=== PATIENT | male | born 1950 | race Caucasian/White ===

== ENCOUNTER 2018-07-19 20:24 | Inpatient (IN) ==
--- NOTE | 2018-07-19 21:08 | Diag Imaging Result Doc PS360 ---
EXAM: CHEST-PORTABLE HISTORY: chf? TECHNIQUE: Portable chest single view COMPARISON: 01/25/2018 FINDINGS: The lungs are well expanded. The heart is not enlarged. The vessels are not distended. There are no infiltrates. No effusion identified. There are surgical clips in the right axilla. IMPRESSION: No congestive failure. Electronically signed by Momo Gutierrez 07/19/2018 9:06 PM
[2018-07-19 21:40] LABS: URINE SOURCE CLEAN CATCH
[2018-07-19 21:48] LABS: BILIRUBIN URINE NEGATIVE (NEGATIVE); BLOOD URINE NEGATIVE (NEGATIVE); COLOR STRAW; GLUCOSE URINE 150 mg/dL (NEGATIVE); KETONE URINE NEGATIVE (NEGATIVE); LEUKOCYTES URINE NEGATIVE (NEGATIVE); NITRITE URINE NEGATIVE (NEGATIVE); PH URINE 5.5; PROTEIN URINE NEGATIVE (NEGATIVE); SP GRAVITY URINE 1.013; TURBIDITY URINE CLEAR (CLEAR); UROBILINOGEN URINE NORMAL (NORMAL)
[2018-07-19 21:50] LABS: UR EPITHELIAL CELLS <10 /HPF (<10); URINE BACTERIA NEGATIVE /HPF; URINE RBC <10 /HPF (<10); URINE WBC <10 /HPF (<10)
[2018-07-19] MEDS ORDERED: XYLOCAINE 1% ONE (22:19)
[2018-07-19] MEDS: NS 1,000 ML IV SCH (22:45)
[2018-07-19 23:07] LABS: INR 1.06; PROTIME 14.6 Seconds (11.0-16.0)
[2018-07-19 23:08] LABS: BASO# 0.01 X1000 (0.0-0.2); BASO% 0.1 % (0.0-0.8); EOS# 0.02 X1000 (0.0-0.7); EOS% 0.1 % (0.0-10.0); HEMATOCRIT 27.4 % (42.0-52.0); HEMOGLOBIN 8.7 g/dL (14.0-18.0); IMM GRAN# 0.04 X1000 (0.0-0.04); IMM GRAN% 0.3 % (0.0-0.5); LYMPH# 1.38 X1000 (1.2-3.4); LYMPH% 9.1 % (20.5-51.1); MCH 29.5 PG (27-31); MCHC 31.8 g/dL (33-37); MCV 92.9 FL (81-99); MONO# 1.02 X1000 (0.11-0.59); MONO% 6.7 % (1.7-9.3); MPV 10.2 FL (7.4-10.4); NEUT# 12.75 X1000 (1.4-6.5); NEUT% 83.7 % (42.2-75.2); PLT 241 X1000 (130-400); RBC 2.95 XMIL (4.7-6.1); RDW 13.3 % (11.5-14.5); WBC 15.22 X1000 (4.8-10.8)
[2018-07-19] MEDS ORDERED: SODIUM CHLORIDE 0.9% INJ ONE (23:12)
[2018-07-19] MEDS ORDERED: PROTONIX IV ONE (23:12)
[2018-07-19 23:17] LABS: PTT < 20.0 Seconds (22.3-41.8)
--- NOTE | 2018-07-19 23:33 | PROVIDER DOCUMENTATION ---
This chart was entered by Juli Gutierrez Scribe, acting as scribe for Kristofer Mtz MD. HPI-General Adult - General Chief Complaint: Shortness of Breath Stated Complaint: sob Time Seen by Provider: 07/19/18 20:32 Source: patient Allergies/Adverse Reactions: Patient Allergies Allergy/AdvReac Type Severity Reaction Status Date / Time No Known Allergies Allergy Verified 01/25/18 19:24 Home Medications: Home Medication List Medication Instructions Recorded Confirmed Last Taken Type ATORVAstatin [Lipitor] 40 mg PO DAILY 01/01/13 10/04/17 10/01/17 20:00 History Clopidogrel [Plavix] 75 mg PO DAILY 01/01/13 10/04/17 10/01/17 07:00 History Furosemide [Lasix] 40 mg PO DAILY 01/01/13 10/04/17 10/01/17 07:00 History Metformin HCl [Metformin HCl ER] 2,000 mg PO DAILY 01/01/13 10/04/17 10/01/17 07 :00 History Potassium Chloride [Klor-Con M20] 20 meq PO DAILY 01/01/13 10/04/17 10/01/17 07: 00 History Venlafaxine E.r. [Effexor Xr] 150 mg PO DAILY 01/01/13 10/04/17 10/01/17 07:00 History Hydrocodone/APAP 7.5 mg/325 mg 1 each PO Q6H PRN PRN #14 tablet 03/02/1510/01/17 07:00 Rx [[place]-7.5] Losartan Potassium 50 mg PO DAILY 03/02/15 10/04/17 10/01/17 07:00 History Omeprazole 40 mg PO DAILY 03/02/15 10/04/17 10/01/17 07:00 History Hydrocodone/APAP 5 mg/325 mg 1 each PO Q6H PRN PRN #10 tablet 10/04/17 Unknown Rx [[place]-5] Cephalexin [Keflex] 500 mg PO Q6HR #28 cap 01/25/18 Unknown Rx - History of Present Illness -Gen Adult Nature of Presenting Problems: Pt presents to ed via EMS. PT Sts that he has no energy and is dizzy, SOB and keeps falling. Pt fell tonight and has an abrasion on L elbow. Pt has hx of IDDM , [place] and has stents. Location of Pain/Injury: reports: upper extremity (abrasion L elbow), other (no other injury) Pain Radiation: reports: no radiation Quality of Pain: reports: none Onset/Duration: reports: just prior to arrival Timing: reports: still present Context/Activities at Onset: reports: light activity Modifying Factors: improves with: nothing Associated Symptoms: reports: dizziness, shortness of breath, weakness Similar Symptoms Previously?: No Recently seen or treated by another doctor?: No Review of Systems - Adult - REVIEW OF SYSTEMS - ADULT Constitutional: reports: no symptoms reported. denies: chills, fever Eyes: reports: no symptoms reported Ears, Nose, Mouth & Throat: reports: no symptoms reported Cardiovascular: reports: no symptoms reported. denies: chest pain Respiratory: reports: shortness of breath. denies: wheezing Gastrointestinal: reports: no symptoms reported. denies: abdominal pain, diarrhea, nausea, vomiting Genitourinary: reports: no symptoms reported Musculoskeletal: reports: no symptoms reported Integumentary: reports: no symptoms reported Neurological: reports: no symptoms reported Psychiatric: reports: no symptoms reported Endocrine: reports: no symptoms reported Hematologic/Lymphatic: reports: no symptoms reported Allergic/Immunologic: reports: no symptoms reported All Other Systems: Reviewed and Negative Past History - Adult - PAST MEDICAL HISTORY-ADULT Review of Records: reports: Old Records Reviewed, Nursing Assessment Review, Medications Reviewed, Social history reviewed & non-contributory. Major Childhood Illnesses: reports: denies history Cardiovascular: reports: CAD, HTN, hyperlipidemia Respiratory: reports: denies history Gastrointestinal: reports: denies history Obstetrical/Gynecological: reports: denies history Genitourinary: reports: denies history Musculoskeletal: reports: denies history Neurological: reports: denies history Endocrine/Immune: reports: other (lymphedema) Other Conditions: reports: other cancer (multiple melanoma) - PRIOR SURGERIES/PROCEDURES Surgical/Procedure History: reports: cardiac stent, other (lymph nodes removed in right arm) - IMMUNIZATION STATUS Childhood Immunizations: See Nurse Assessment Flu Vaccine: See Nurse Assessment - FAMILY HISTORY Family History: reviewed, not pertinent - SOCIAL HISTORY Smoking: cigarettes, less than 1 pack/day Provider spent 3-5 mins advising pt. on dangers of tobacco.: Discussed manners to quit use, and f/u contacts for add'l counseling. Substance Use: none/never Alcohol Use Frequency: never Living Situation: family Physical Exam-General - PHYSICAL EXAM-ADULT Initial Vital Signs Reviewed: Yes - CONSTITUTIONAL General Appearance: appears well, alert, no apparent distress, obese - EYES Eyes: PERRL/EOMI - HEAD, EARS, NOSE, MOUTH & THROAT HENMT: normocephalic/atraumatic, moist mucous membranes, normal ENT inspection, TMs normal, pharynx normal - NECK Neck: non-tender, full range of motion, supple, normal inspection - RESPIRATORY Respiratory: chest non-tender, lungs clear, normal breath sounds - CARDIOVASCULAR Cardiovascular: normal peripheral pulses, regular rate, rhythm, no edema - GASTROINTESTINAL (ABDOMEN) Abdominal Exam: normal bowel sounds, non tender, soft - LYMPHATIC Lymphatic: no adenopathy - MUSCULOSKELETAL Back Exam: normal inspection, no CVA tenderness, no vertebral tenderness Extremity: normal range of motion, non-tender, normal gait, normal inspection - SKIN Integumentary: normal color, warm/dry, abrasion(s) (small abrasion to L elbow) - NEUROLOGIC Neurologic: grossly normal - PSYCHIATRIC Psych/Mental Status: normal mood/affect, normal thought content, normal thought process, oriented x 3 Progress - PLAN OF CARE/RESULTS Progress/Plan/Lab Results: Vital Signs - 8 hr 07/19/18 21:16 07/19/18 21:18 Temperature 97.8 F Pulse Rate 113 H Respiratory Rate 22 Blood Pressure 123/57 O2 Sat by Pulse Oximetry 91 L 100 Laboratory Results - last 24 hr 07/19/18 21:32 Urine Source CLEAN CATCH Urine Color STRAW Urine Turbidity CLEAR Urine pH 5.5 Ur Specific [place] 1.013 Urine Protein NEGATIVE Ur Glucose (Stick) 150 A Ur Ketones (Stick) NEGATIVE Urine Blood NEGATIVE Urine Nitrite NEGATIVE Urine Bilirubin NEGATIVE Urobilinogen Dipstick NORMAL Urine Leukocytes NEGATIVE Urine WBC (Auto) <10 Urine RBC (Auto) <10 U Epithel Cells (Auto) <10 Urine Bacteria (Auto) NEGATIVE Orders Category Date Time Status CHEST-PORTABLE [RAD] Stat Exams 07/19/18 20:49 Completed BNP [PRO B-NATRIURETIC PEPTIDE] Stat Lab 07/19/18 20:52 Uncollected CBC WITH ELECTRONIC DIFF [HEME] Stat Lab 07/19/18 20:50 Uncollected COMPREHENSIVE METABOLIC PANEL [CHEM] Stat Lab 07/19/18 20:51 Uncollected OCCULT BLOOD SCREENING [STOOL] Stat Lab 07/19/18 21:42 Uncollected PROTIME WITH INR [COAG] Stat Lab 07/19/18 21:42 Uncollected PTT [COAG] Stat Lab 07/19/18 21:42 Uncollected TROPONIN T Stat Lab 07/19/18 20:51 Uncollected TYPE & SCREEN [BBK] Stat Lab 07/19/18 21:42 Uncollected UA NIMS W/REFLEX CULT [URINALYSIS] Stat Lab 07/19/18 21:32 Completed EKG [EKG] Stat Ther 07/19/18 20:25 Ordered Result Diagrams: 07/19/18 22:29 - REASSESSMENT Reassessment #1 Time Reassessed: 22:39 Status: unchanged (RN unable collect blood or start a line, so central line placed and blood sent to lab) - EKG 1 Time of EKG reading by physician:: 20:30 EKG Interpretation (*Must complete 3 of following elements*): Abnormal (sinus tachycardia, Right bundle branch block, Left anterior fascicular block bifascicular block Abnormal ECG) Rate: 114 Rhythm: sinus tachycardia Gregory: normal QRS: normal - XRAY 1 XRAY: Bilateral XRAY Study: Chest Impression: Normal (FINDINGS: The lungs are well expanded. The heart is not enlarged. The vessels are not distended. There are no infiltrates. No effusion identified. There are surgical clips in the right axilla. IMPRESSION: No congestive failure. Electronically signed by Momo Gutierrez 07/19/2018 9:06 PM 07/19/18 [id number]) - CONSULTS/PCP/HOSPITALIST Notification #1 *Consult/PCP/Hospitalist*: Sixto Time Discussed: 23:24 Reason/Comments: ADMIT Consult Disposition: Admit Procedures - CENTRAL LINE Consent Form Signed?: Yes Time-Out Verification Completed?: Yes Central Line Lumen: triple Catheter: Sinhala: 7 Central Line Procedure Prep: Kit Utilized, Chloraprep Patient Position (To prevent Air Embolism): Trendelenburg (SC/IJ) Central Line Position: subclavian (L) Ultrasound Guided?: No Hat, mask, sterile gown, & sterile gloves worn by physician?: Yes Site scrubbed vigorously for 30 seconds? (Groin: 2 min): Yes Anesthetic: 1%, Lidocaine/Xylocaine Volume of Anesthetic (ml's): 10 Post Procedure: Sutured in place, Sterile field maintained, BioPatch placed, Sterile dressing applied, Blood aspirated from each lumen, Placement verfied by XRAY Complications: none Departure - Departure Date of Disposition Decision: 07/19/18 Time of Disposition Decision: 23:27 DIAGNOSIS: GIB (gastrointestinal bleeding) Qualifiers: GI bleed type/associated pathology: melena Qualified Code(s): K92.1 - Melena Disposition: ADMITTED INPATIENT 09 Certified Medical Emergency: Emergent Condition: Stable Referrals and Follow-Ups: Mel Bueno MD [Primary Care Provider] - - Critical Care Note This patient required my direct & personal management of CC.: Yes Total Time (mins): 30 Critical Care Statement: This patient required my direct personal management to treat or rule out processes, the absence of which, could potentiallly result in sudden, clinically significant life or limb threatening deterioration. Attestation - Physician/ ALONZO Attestation Patient care was provided by Advanced Practice Provider:: No The physician spent face to face time with patient:: Yes Advanced Practice Provider documentation review:: Supervising physician onsite and consulted in the evaluation and care of this patient. The physician did have a face to face encounter with the patient. This chart was documented by the indicated scribe, (Juli Gutierrez, Manoj) and accurately reflects the services I performed and decisions made by me, Kristofer Mtz MD, as attested by the provider's signature.
[2018-07-19 23:35] LABS: AGAP 10; ALB/GLOB RATIO 1.3; ALBUMIN 3.2 g/dL (3.5-5.0); ALKALINE PHOSPHATASE 58 U/L (32-122); BUN 53 mg/dL (8-22); CALCIUM 8.1 mg/dL (8.8-10.2); CHLORIDE 102 mmol/L (98-107); COSMO 294; CREATININE 0.8 mg/dL (0.7-1.2); ESTIMATED GFR > 60; GLUCOSE 272 mg/dL (70-104); GOT 10 U/L (10-34); GPT 14 U/L (10-44); POTASSIUM 4.6 mmol/L (3.5-5.1); SODIUM 135 mmol/L (136-145); TCO2 23 mmol/L (25-35); TOTAL BILIRUBIN 0.15 mg/dL (0.20-1.00); TOTAL PROTEIN 5.6 g/dL (6.3-8.3)
[2018-07-19] MEDS ORDERED: ZOFRAN IV PRN (23:45)
[2018-07-19] MEDS ORDERED: TYLENOL PO PRN (23:45)
[2018-07-19] MEDS ORDERED: NS 1,000 ML IV ONE (23:45)
--- NOTE | 2018-07-20 00:30 | HISTORY AND PHYSICAL ---
CHIEF COMPLAINT: Shortness of breath and weakness. 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 He stated that he bought a hamburger yesterday in [place] and could not finish it because it "didn't taste right." He did not feel good the entire trip home and when he got home today he felt bad. Just prior to coming to the emergency room, he had gone to the bathroom to have a bowel movement. He felt an intense urge to have a bowel movement. He lost control of his bowels and immediately following this copious black tarry stool he felt intensely weak. He felt like he was short of breath and could walk or breathe. He was unable to get up and move about and an ambulance was called to transport him to the emergency room. In the emergency room, he was found to have a low hemoglobin and hematocrit, he was hypotensive and he had heme-positive stool from below that was melenic. PAST MEDICAL HISTORY: 1. Diabetes mellitus type 2 not on insulin. 2. Other chronic pain. 3. History of coronary disease with single coronary stent. The patient is on Plavix. 4. Hypercholesterolemia. 5. Morbid obesity. 6. Lymphedema of the right arm secondary to melanoma removal from the right shoulder and lymph node dissection. PAST SURGICAL HISTORY: Coronary stent placement. 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 He smokes. He is morbidly obese. He denied use of alcohol. He does use pain medications by prescription for chronic pain in the back. ALLERGIES: No known drug allergies. REVIEW OF SYSTEMS: Patient denies any ongoing or developing shortness of breath. He has had no chest pain or palpitations. He has had no neurological events. He denies any vomiting. He denies any diarrhea. He has not noted any dark stools prior to today. He has never had a colonoscopy. He denies any ongoing abdominal pain or cramping. He has had no difficulty with urination. PHYSICAL EXAMINATION: The patient is a morbidly obese white male in no acute distress. He is alert, oriented, conversive and appropriate . ENT: The sclerae are anicteric. Conjunctival mucosa is pale but he does not have true pallor. NECK: No carotid bruits. No JVD. LUNGS: Clear to auscultation in all han[place]. He has a triple-lumen catheter subclavian on the left side. EXTREMITIES: The patient has no lower extremity edema to speak of. His right arm is nearly twice the size of his left due to lymphedema. RECTAL: Exam was performed by the emergency room physician. NEUROLOGIC: Cranial nerves are intact by observation. The patient's speech is clear. PSYCH: Normal mood and affect. LABORATORY: White cell count 15.2, hemoglobin 8.7, hematocrit 27.4, BUN 53, creatinine 0.8, glucose 272. Troponin is negative. Urinalysis was normal. ASSESSMENT AND PLAN: 1. Upon further review, the patient revealed that he had been recently prescribed a "arthritis medicine" which he has been taking. That medication combined with his Plavix have likely resulted in a gastrointestinal bleed of significance. The patient will be admitted to the hospital with IV fluids infused. He has been typed and crossed and will transfuse as necessary. I have started pantoprazole 40 mg IV q.12 hours. I will consult Dr. Sparrow in the morning. The patient could likely benefit from upper and lower endoscopy, although the need for that procedure on inpatient basis might be questionable due to the patient's lifestyle that may be the only opportunity available because I think he would likely not follow up. We will check hematocrit every 6 hours. 2. The patient had a history of coronary disease and stent placement. His initial presenting symptom was shortness of breath and weakness immediately following a melenic stool of large volume. He did not have any chest pain, but given his set of risk factors, this is something we need to keep an eye on as well. He will be put on telemetry for the next 48 hours. We may want to recheck enzymes if he has any further shortness of breath. We will hold the patient's Plavix for the present time. 3. The patient has diabetes mellitus and is morbidly obese. We will cover him with sliding scale insulin and hold as many of his p.o. medications as possible. In fact, those will need to be reconciled in the morning by the hospitalist taking over the case. There is no need to give any of those tonight. 4. Hypercholesterolemia, aware. 5. Hypertension. We will hold those medications at the present time. cc: Tray Mendoza MD
[2018-07-20] MEDS: NS 1,000 ML IV SCH (00:50)
[2018-07-20 03:48] LABS: HEMATOCRIT 25.9 % (42.0-52.0); HEMOGLOBIN 8.2 g/dL (14.0-18.0)
[2018-07-20] MEDS: HUMALOG SUBQ SCH ×4 (06:51→21:13)
--- NOTE | 2018-07-20 07:41 | Diag Imaging Result Doc PS360 ---
EXAM: CHEST-PORTABLE - 07/19/2018 HISTORY: post central line TECHNIQUE: Portable chest COMPARISON: Prior exam of 07/19/2018 FINDINGS: There has been interval insertion of a left subclavian central venous catheter with its tip at the expected location of the superior vena cava near the junction with the left innominate vein. There is no evidence of pneumothorax. Heart size is normal. Inspiration is mildly shallow. The lungs appear clear. IMPRESSION: Tip of central venous catheter at superior vena cava. No evidence of pneumothorax. Electronically signed by Quan Saini 07/20/2018 7:38 AM
[2018-07-20 08:09] LABS: HEMATOCRIT 25.9 % (42.0-52.0); HEMOGLOBIN 8.1 g/dL (14.0-18.0)
[2018-07-20] MEDS: MORPHINE IV PRN ×3 (10:18→23:26)
[2018-07-20 11:06] LABS: HEMOGLOBIN 7.6 g/dL (14.0-18.0)
[2018-07-20] MEDS: PROTONIX IV SCH ×2 (12:32→23:26)
[2018-07-20] MEDS: SODIUM CHLORIDE 0.9% INJ SCH ×2 (12:32→23:26)
--- NOTE | 2018-07-20 13:10 | CONSULTATION ---
DATE OF CONSULTATION: 07/20/2018 HISTORY OF PRESENT ILLNESS: Mr. Whipple was admitted to the hospital yesterday after he presented with complaints of weakness and shortness of breath. The patient is a diabetic and has a history of coronary artery disease status post PTCA and stent placement a few years ago. He has been in his usual state of health but had come home after a trip to [place], apparently he ate a hamburger and started feeling bad. He had multiple loose bowel movements. After 1 of his bowel movements he felt very weak and short of breath. According to his daughter he was sitting in his bathroom and felt very weak, lethargic, and had a empty stare. Ambulance was called and he was brought into the hospital where he was found to be hypotensive. He was also found to be anemic. He was admitted to the hospital for further management and treatment. The patient tells me that he has some shoulder problem in the right shoulder. He was seen by an orthopedic surgeon. Was started on medication; he thinks it was Mobic. It was taken once a day for the past 2 weeks for his shoulder problem. He has not had any bright red blood per rectum but he thinks he had some dark stool, which was examined in the hospital and it was heme-positive. He denies any indigestion, heartburn, or reflux. He denies any dysphagia, odynophagia. His appetite is good. He is eating well. He has not lost any weight. He has complained of some shortness of breath, but denies chest pain or palpitations. He has had no fever or chills. Denies cough, sputum, or hemoptysis. Has not had any dysuria, polyuria, or hematuria. PAST MEDICAL HISTORY: Significant for coronary disease status post PTCA and stent placement, history of diabetes, hyperlipidemia, and had history of melanoma removed from the right shoulder. PAST SURGICAL HISTORY: He has had resection of his melanoma an PTCA with stent placement. MEDICATIONS: Prior to hospitalization he was on Lipitor, Plavix, Lasix, glimepiride, losartan, potassium, metformin, Actos and potassium chloride. ALLERGIES: No drug allergies. SOCIAL HISTORY: He is . His is pretty sick. He does not smoke. Drinks on occasion only. Does not use illicit drugs. FAMILY HISTORY: Noncontributory. REVIEW OF SYSTEMS: As per HPI as above. PHYSICAL EXAMINATION: General: Very pleasant white male. He is overweight. He is lying in bed. He is conscious, alert, appears to be in no distress. Vital signs: Temperature 98.1 degrees Fahrenheit, pulse is 94 per minute, breathing 20, blood pressure was 137/62. His 5 feet 11 inches tall. He is 300 pounds. HEENT: Head is atraumatic, normocephalic. Eyes: Conjunctivae normal. Sclerae anicteric. Nares are patent. No discharge. Mouth: Buccal mucosa is moist. Throat is normal. Neck: Supple. No lymphadenopathy or thyromegaly. Chest: Bilaterally symmetrical. It is moving with respirations. Breath sounds audible bilaterally. No rhonchi or crepitations could be heard. Heart: S1, S2 audible. No murmur could be appreciated. Abdomen: Obese. It is full, soft. It is nontender. I could not appreciate any mass or visceromegaly. Bowel sounds are audible. Extremities: No pedal edema, cyanosis, clubbing was noted. 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 No sensory or motor deficit noted. LABORATORIES: Reviewed which showed WBC on admission was 15.2, hemoglobin 8.7, hematocrit 27.2, MCV is 92.9, platelets were 241,000. PT 14.6, INR 1.06, PTT less than 20. Sodium 135, potassium 4.6, chloride 102, bicarb 23, BUN was 53, creatinine 0.8. AST 10, ALT 14, total bilirubin was 0.15. Today his hemoglobin is 8.1, hematocrit 25.9. IMPRESSIONS: 1. Acute gastrointestinal bleed, most likely NSAID-induced gastropathy. 2. Anemia secondary to gastrointestinal bleed. He has had significant loss of blood that was hemodynamically unstable. Stabilized after IV hydration. 3. Elevated BUN disproportionately to creatinine, most likely secondary to gastrointestinal bleed and from blood in the gut. 4. History of coronary disease status post PTCA and stent placement. On Plavix. Stable. 5. Diabetes. 6. Obesity. 7. Screening for colonoscopy. DISCUSSION AND PLAN: This 67-year-old gentleman has presented with acute GI bleed, most likely NSAID-induced gastropathy. Has had significant blood loss leading to hemodynamic instability, but he is stable now. He has been on most likely Mobic from the description of the medication and has not had any active bleeding since admission. He feels better. At this point, I would continue on proton pump inhibitor and recheck hemoglobin and hematocrit, transfuse if necessary. He will be scheduled for EGD as soon as possible for diagnostic as well as therapeutic purposes. He will need a colonoscopy as well but that can be done as an outpatient. I have explained my findings and plan to the patient. He understands. His daughter was present bedside and she understood and agreed. All the pertinent questions were answered. The patient will be scheduled for tomorrow. The rest of the medical problems as per team. cc: MD Mel Lu MD MTDD
[2018-07-20] MEDS ORDERED: BENADRYL PO ONE (14:44)
[2018-07-20] MEDS ORDERED: TYLENOL PO ONE (14:44)
[2018-07-20] MEDS ORDERED: LASIX IV SCH (14:45)
[2018-07-20 15:02] LABS: RETIC% 1.38 % (0.8-2.1); RETIC-HE 36.7 PG (28.2-36.6)
--- NOTE | 2018-07-20 15:02 | PROGRESS NOTE ---
DATE: 07/20/2018 SUBJECTIVE: Patient has no focal complaints. OBJECTIVE: Blood pressure is 136/62, heart rate of 94, respiratory rate of 20, temperature 98.1 degrees, 100% on 3 L.Cardiovascular: Regular rate and rhythm. Pulmonary: Bilateral breath sounds clear to auscultation. GI: Soft, nontender, nondistended. Bowel sounds are positive. LABORATORY DATA: Hemoglobin and hematocrit have dropped to 7.6 and 24 from 8 and 27, BUN and creatinine are 53 and 0.8. PROBLEM LIST: 1. GI bleed, most likely upper gastrointestinal bleed. We will continue Protonix. May even consider a drip. He is on q. 12 Protonix. Hemoglobin and hematocrit has dropped. We are going to go ahead and give him a unit of blood. Hold anticoagulation and follow closely. 2. Shortness of breath with unclear etiology. He does have a smoking history. He has a cardiac history, but not a history of CHF per se. He is morbidly obese. His chest x-ray was negative. We will continue to follow closely. In any case, patient has felt stable. We will continue to follow. 3. Type 2 diabetes is stable. Blood sugars are stable. We will continue sliding scale and check an A1c. Continue his regular medications and follow. cc: Dylon Lui MD
[2018-07-20 15:15] LABS: IRON SATURATION 72 %; TIBC 271 ug/dL; TOTAL IRON 195 ug/dL (53-167); UNBOUND IRON 76 ug/dL (112-346)
[2018-07-20 15:38] LABS: FERRITIN 40 ng/mL (30-400)
[2018-07-20] MEDS: ATIVAN IV PRN (21:18)
[2018-07-21] MEDS ORDERED: NS 1,000 ML IV ONE
[2018-07-21] MEDS: MORPHINE IV PRN ×2 (02:51→06:24)
[2018-07-21] MEDS: HUMALOG SUBQ SCH ×4 (06:17→23:57)
[2018-07-21 07:47] LABS: BASO# 0.02 X1000 (0.0-0.2); BASO% 0.3 % (0.0-0.8); EOS# 0.22 X1000 (0.0-0.7); EOS% 2.8 % (0.0-10.0); HEMATOCRIT 25.6 % (42.0-52.0); LYMPH# 3.17 X1000 (1.2-3.4); MCH 29.3 PG (27-31); MCHC 31.3 g/dL (33-37); MCV 93.8 FL (81-99); MONO% 12.6 % (1.7-9.3); MPV 9.5 FL (7.4-10.4); NEUT# 3.51 X1000 (1.4-6.5); NEUT% 44.3 % (42.2-75.2); PLT 212 X1000 (130-400); RBC 2.73 XMIL (4.7-6.1); RDW 14.3 % (11.5-14.5); WBC 7.92 X1000 (4.8-10.8)
[2018-07-21 07:57] LABS: HEMOGLOBIN A1C 6.4 % (4.8-6.0)
[2018-07-21 08:09] LABS: AGAP 6; BUN 17 mg/dL (8-22); CALCIUM 8.1 mg/dL (8.8-10.2); CHLORIDE 106 mmol/L (98-107); COSMO 283; CREATININE 0.8 mg/dL (0.7-1.2); ESTIMATED GFR > 60; GLUCOSE 132 mg/dL (70-104); POTASSIUM 4.6 mmol/L (3.5-5.1); SODIUM 140 mmol/L (136-145); TCO2 28 mmol/L (25-35)
--- NOTE | 2018-07-21 09:29 | EKG Report ---
Test Performed on : 07/19/2018 8:28:55 PM Test Reason : sob Blood Pressure : / mmHG Vent. Rate : 114 BPM Atrial Rate : 114 BPM P-R Int : 124 ms QRS Dur : 128 ms QT Int : 348 ms P-R-T Axes : 058 -89 038 degrees QTc Int : 479 ms Sinus tachycardia. Right bundle branch block Left anterior fascicular block Bifascicular block Abnormal ECG When compared with ECG of 25-JAN-2018 18:50, Vent. rate has increased BY 39 BPM Unconfirmed Result
[2018-07-21] MEDS: PROTONIX IV SCH ×3 (13:01→23:55)
[2018-07-21] MEDS: SODIUM CHLORIDE 0.9% INJ SCH ×2 (13:01→19:10)
--- NOTE | 2018-07-21 17:18 | PROGRESS NOTE ---
DATE: 07/21/2018 SUBJECTIVE: This morning Mr. Whipple referred to be doing fairly okay. He denies having any more melenic stool. He is pending an EGD today. OBJECTIVE: Vitals: Blood pressure is 153/64, pulse is 84, respiration is 15, temperature 97.8 degrees. General: Mr. Whipple 67-year-old gentleman he is in bed. He is morbidly obese with a BMI of 41.9. He was not in any cardiopulmonary distress. Mucosa is pink and moist. Anicteric. Acyanotic. Neck: Supple. Chest: Clear to auscultation. Cardiovascular: Regular rate and rhythm. Abdomen: Soft, distended, minimally tender in the epigastrium. Bowel sounds are present. Extremities: No pedal edema. GASOLINE SERVICE ATTENDANT: Patient is awake, alert, oriented. There is no focal neurological deficit. LABORATORY DATA: WBC is 7.92, hemoglobin is 8.0, platelet count of 212,000 . Chemistry is also reviewed completely normal. A1c 6.4. Patient medications have also been reviewed. ASSESSMENT: 1. Symptomatic anemia on presentation patient is status post 1 packed red blood cells transfused. 2. Anemia secondary to gastrointestinal bleed. Patient did complain of melena, he is pending GI intervention to find out the source of the bleed. 3. Diabetes mellitus controlled on insulin regimen. 4. Morbid obesity with body mass index 41.9, weight loss has been advised. 5. Hypertension controlled. 6. Dyslipidemia. Will continue with statin. cc: Mau Noel MD
[2018-07-21] MEDS ORDERED: XYLOCAINE-MPF 2% ONE (17:54)
[2018-07-21] MEDS ORDERED: DIPRIVAN 1% ONE ×2 (17:54→18:28)
[2018-07-21] MEDS ORDERED: SODIUM CHLORIDE 0.9% INJ SCH (18:45)
[2018-07-21] MEDS: COZAAR PO SCH (19:10)
[2018-07-21] MEDS: EFFEXOR XR PO SCH (19:10)
[2018-07-21] MEDS: LIPITOR PO SCH (19:10)
--- NOTE | 2018-07-21 20:23 | OPERATIVE NOTE ---
PROCEDURE DATE: 07/21/2018 PROCEDURE: EGD and biopsy. PREOPERATIVE DIAGNOSES: 1. Acute gastrointestinal bleed. 2. Anemia secondary to gastrointestinal bleed. POSTOPERATIVE DIAGNOSIS: Gastric ulcer biopsied, esophagitis LA grade A. HISTORY: This is a 67-year-old gentleman admitted to hospital with symptomatic anemia and history of melena. On admission, his hemoglobin was 8.7. EGD was done for diagnostic as well as therapeutic purposes. PROCEDURE DETAILS: Informed consent was obtained from the patient. The procedure, risks, benefits, alternatives were explained in layman's terms. He understood. All his pertinent questions were answered. Patient was brought to the endoscopy unit and premedicated as per Anesthesia. After adequate sedation, while he was lying in left lateral position, the gastroscope was introduced into the posterior pharynx and advanced under direct vision into the esophagus. Esophagus in the upper and middle part was normal. Distal esophagus right at about 40 cm from the incisor where the Z-line was noted there was a small ulcer noted compatible with esophagitis LA grade A. No webs, rings, varices were seen. Scope was then passed through the esophagus into the stomach. Stomach was examined in both straight and retroflexed view, which revealed normal cardia, fundus and body. In the antrum and the anterior superior aspect, there was a linear ulcer noted which was a spindle-shaped ulcer which was about 12 mm long and about 8 mm wide. The ulcer was clean based, punched-out and did not have any evidence of stigmata of recent bleed. No stigmata of recent bleed was seen. Using cold biopsy forceps, multiple biopsies were obtained from the ulcer edge. The scope was then passed through the normal pylorus, into the duodenal bulb and then to the second portion of duodenum which appeared to be normal. The scope was removed. The patient tolerated the procedure well. No complications noted. Patient was then transferred to the recovery area in a stable condition. IMPRESSION: 1. Gastric ulcer, biopsied. 2. Esophagitis LA grade A. RECOMMENDATIONS: I would continue him on his proton pump inhibitor, switch from every 12 to every 24 hours, recheck hemoglobin and hematocrit, transfuse if necessary. In the meantime, advance his diet to 1800 calorie diabetic diet. Follow up the biopsy report. If H pylori is positive, he will need to be treated for that. I have also advised him to avoid any NSAIDs other than aspirin that he has to take for his cardiac prophylaxis. I have explained the findings and plan to the patient's family members. They understood. All the pertinent questions answered. cc: Larry Sparorw MD
[2018-07-21] MEDS: ATIVAN IV PRN (23:57)
[2018-07-22] MEDS: HUMALOG SUBQ SCH ×4 (07:54→21:18)
[2018-07-22 08:00] LABS: BASO# 0.01 X1000 (0.0-0.2); BASO% 0.1 % (0.0-0.8); EOS# 0.14 X1000 (0.0-0.7); EOS% 2.1 % (0.0-10.0); HEMATOCRIT 24.1 % (42.0-52.0); HEMOGLOBIN 7.4 g/dL (14.0-18.0); LYMPH# 1.72 X1000 (1.2-3.4); LYMPH% 25.7 % (20.5-51.1); MCHC 30.7 g/dL (33-37); MCV 94.5 FL (81-99); MONO# 0.91 X1000 (0.11-0.59); MONO% 13.6 % (1.7-9.3); MPV 9.8 FL (7.4-10.4); NEUT# 3.91 X1000 (1.4-6.5); NEUT% 58.5 % (42.2-75.2); PLT 205 X1000 (130-400); RBC 2.55 XMIL (4.7-6.1); RDW 14.2 % (11.5-14.5); WBC 6.69 X1000 (4.8-10.8)
[2018-07-22 08:16] LABS: AGAP 9; ALB/GLOB RATIO 1.4; ALBUMIN 3.2 g/dL (3.5-5.0); ALKALINE PHOSPHATASE 52 U/L (32-122); BUN 15 mg/dL (8-22); CALCIUM 7.9 mg/dL (8.8-10.2); CHLORIDE 107 mmol/L (98-107); COSMO 285; CREATININE 0.9 mg/dL (0.7-1.2); ESTIMATED GFR > 60; GLUCOSE 119 mg/dL (70-104); GOT 15 U/L (10-34); GPT 17 U/L (10-44); POTASSIUM 3.7 mmol/L (3.5-5.1); SODIUM 142 mmol/L (136-145); TCO2 26 mmol/L (25-35); TOTAL BILIRUBIN 0.23 mg/dL (0.20-1.00); TOTAL PROTEIN 5.5 g/dL (6.3-8.3)
[2018-07-22] MEDS: EFFEXOR XR PO SCH (08:46)
[2018-07-22] MEDS: COZAAR PO SCH (08:46)
[2018-07-22] MEDS: LIPITOR PO SCH (08:46)
[2018-07-22] MEDS: MORPHINE IV PRN ×6 (08:52→20:53)
[2018-07-22] MEDS: SODIUM CHLORIDE 0.9% INJ SCH (11:15)
[2018-07-22] MEDS: PROTONIX IV SCH ×2 (11:15→17:59)
--- NOTE | 2018-07-22 11:43 | PROGRESS NOTE ---
DATE: 07/22/2018 SUBJECTIVE: Patient had an EGD on 07/21/2018. Indications for acute GI bleed and anemia. Findings showed a gastric ulcer and esophagitis. Biopsies were done. Today his hemoglobin and hematocrit have dropped to 7.4 and 24.1. Patient denies any visible bleeding. OBJECTIVE: Vital Signs: Temperature 98.5 degrees, pulse 82, blood pressure 148 /54. General: Patient is awake, alert, no acute distress. LABORATORY: Hematology 6.69, hemoglobin 7.4, hematocrit 24.1, MCV 94.5, platelets 205,000. Chemistry: Sodium 142, potassium 3.7, chloride 107, CO2 26, BUN 15, creatinine 0.9, glucose 119. ASSESSMENT AND PLAN: 1. Anemia. Patient will receive 2 more units of packed red blood cells today. 2. Esophagogastroduodenoscopy showing gastric ulcer and esophagitis. Waiting on biopsy. 3. Diabetes. 4. Hypertension. 5. Dr. Sparrow recommends colonoscopy for evaluation. We will schedule for tomorrow. We will give 2 units of packed red blood cells today. Further plans will be made according to findings. I have discussed this case with Dr. Sparrow and also with Dr. Noel. Patient voices understanding of the procedure, along with benefits and risk and wishes to proceed. Dictated by BLANCA Bonilla for Larry Sparrow MD cc: BLANCA Vallejo MD [facility]
--- NOTE | 2018-07-22 13:32 | PROGRESS NOTE ---
DATE: 07/22/2018 SUBJECTIVE: This morning, Mr. Whipple refers to be doing fairly okay, has not had any more bowel movement. However, his hemoglobin has dropped to 7.4. Early on, the patient was seen by GI, and there was a plan to discharge. However, after reviewing his hemoglobin and hematocrit, they have changed their mind and want to do colonoscopy to complete his workup before he leaves. OBJECTIVE: Vital Signs: This morning, blood pressure is 148/54, pulse is 82, respirations 18, temperature is 98.5 degrees, the patient is saturating 97% on room air. General: Mr. Whipple is a 67-year-old gentleman. He is in bed. No distress. HEENT: Mucosa is pink and moist. Anicteric. Acyanotic. Neck: Supple. Chest: Good air entry bilaterally. No crepitations. No rhonchi. Cardiovascular: Regular rate and rhythm. No murmurs, no rubs, no gallops. Abdomen: Soft, nontender. Bowel sounds present. Extremities: No pedal edema. 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 There is no focal neurological deficit. LABORATORY AND DIAGNOSTIC DATA: WBC is 6.69, hemoglobin is down to 7.4, platelet count is 205,000. Chemistry is also reviewed and completely normal. Review of the EGD report shows a gastric ulcer, which was biopsied, and esophagitis LA grade 1. ASSESSMENT: 1. Symptomatic anemia on presentation. The patient is status post 1 packed red blood cells transfusion. Hemoglobin and hematocrit has dropped some. 2. Anemia secondary to gastrointestinal bleed. The patient did have an endoscopy, which did not show any revealing course for this bleed. The patient did have some ulcers, but it was described as clean base. 3. Gastric ulcer with clean base. The patient is currently on proton pump inhibitor. Biopsies were taken. Will be pending the results of Helicobacter pylori as well as the pathology on the biopsies. 4. Morbid obesity with body mass index of 41.9. The patient is counseled. 5. Diabetes mellitus, controlled on insulin regimen. 6. Hypertension and dyslipidemia, controlled. In general, Mr. Whipple does not seems to have overt bleeding, but his hemoglobin and hematocrit have dropped, and esophagogastroduodenoscopy was unremarkable, so there is a plan for colonoscopy tomorrow. Will follow up with the results on that. cc: Mau Noel MD
[2018-07-22] MEDS ORDERED: NS 500 ML ONE (13:55)
[2018-07-22] MEDS: SUPREP BOWEL PREP KIT PO SCH (17:07)
[2018-07-23] MEDS: MORPHINE IV PRN ×6 (04:21→18:03)
[2018-07-23] MEDS: SUPREP BOWEL PREP KIT PO SCH (05:19)
[2018-07-23] MEDS: HUMALOG SUBQ SCH ×5 (05:21→21:32)
[2018-07-23 07:38] LABS: BASO# 0.02 X1000 (0.0-0.2); BASO% 0.3 % (0.0-0.8); EOS# 0.22 X1000 (0.0-0.7); EOS% 3.6 % (0.0-10.0); HEMATOCRIT 28.4 % (42.0-52.0); HEMOGLOBIN 8.9 g/dL (14.0-18.0); LYMPH# 1.94 X1000 (1.2-3.4); LYMPH% 31.4 % (20.5-51.1); MCH 29.2 PG (27-31); MCHC 31.3 g/dL (33-37); MCV 93.1 FL (81-99); MONO# 0.87 X1000 (0.11-0.59); MONO% 14.1 % (1.7-9.3); MPV 9.4 FL (7.4-10.4); NEUT# 3.13 X1000 (1.4-6.5); NEUT% 50.6 % (42.2-75.2); PLT 201 X1000 (130-400); RBC 3.05 XMIL (4.7-6.1); RDW 14.9 % (11.5-14.5); WBC 6.18 X1000 (4.8-10.8)
[2018-07-23] MEDS: EFFEXOR XR PO SCH (09:41)
[2018-07-23] MEDS: LIPITOR PO SCH (09:41)
[2018-07-23] MEDS: COZAAR PO SCH (09:41)
[2018-07-23] MEDS ORDERED: FLEET ENEMA PR PRN (09:47)
[2018-07-23] MEDS ORDERED: CITRATE OF MAGNESIA PO ONE (12:04)
[2018-07-23] MEDS ORDERED: FLEET ENEMA PR ONE (12:04)
[2018-07-23] MEDS ORDERED: GOLYTELY PO ONE (14:00)
--- NOTE | 2018-07-23 14:44 | PROGRESS NOTE ---
DATE: 07/23/2018 The patient was scheduled for a colonoscopy today. He had done the Suprep colon prep. This morning he was not clean so we did a Fleet's enema. Patient has had a bowel movement, and I visualized it in the commode, and he is still not clean. We had given him a bottle of magnesium citrate and another Fleets enema. He had another bowel movement that was still not clear. We have cancelled his colonoscopy for today. We will try to proceed with the colonoscopy tomorrow. We will give him a half a gallon of GoLYTELY, clear liquids today, and NPO after midnight. Further plans to be made as needed. I have discussed this case with the nurse, and we will again reschedule his colonoscopy to 07/24/2018. I have discussed this case with Dr. Sparrow. Dictated by BLANCA Bonilla for Larry Sparrow MD cc: BLANCA Vallejo MD [facility]
--- NOTE | 2018-07-23 17:21 | PROGRESS NOTE ---
DATE: 07/23/2018 SUBJECTIVE: Today Mr. Whipple referred to be doing fairly okay. He has had multiple bowel movement from the preparation. OBJECTIVE: His blood pressure is 149/55, pulse 67, respirations 20, temperature is 97.8 degrees. On general exam, Mr. Whipple is a 67-year-old gentleman. He is in bed, in no distress. Mucosa is pink and moist. Anicteric. Acyanotic. Neck is supple. Chest clear to auscultation. No crepitations. No rhonchi. Cardiovascular: Regular rate and rhythm. No murmurs, no rubs, no gallops. GI: Abdomen is soft, distended but nontender. Bowel sounds present. No hepatosplenomegaly. Extremities: No pedal edema. 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 There is no focal neurological deficit. LABORATORY DATA: WBC 6.18, hemoglobin is up to 8.9 after 3 PRBC transfusion. Platelet count is normal. ASSESSMENT AND PLAN: 1. Symptomatic anemia on presentation. The patient is status post 3 packed red blood cells transfusion. Hemoglobin this morning is 8.9. 2. Anemia secondary to gastrointestinal bleed. Upper endoscopy was unremarkable for the cause of the acute bleed. Colonoscopy is pending today. 3. Gastric ulcer with clean base. The patient is currently on proton pump inhibitor, and we are pending the biopsies. 4. Morbid obesity with body mass index of 41.9. Weight management is advised. 5. Diabetes mellitus. The patient is currently controlled on insulin regimen. 6. Hypertension and dyslipidemia, controlled. In general, Mr. Whipple is felt to be doing a lot better. He does not have any more melenic stool and has not had any hematemesis. Esophagogastroduodenoscopy was done yesterday which was unremarkable except for gastric ulcer and some esophagitis. Colonoscopy is planned for today. We will re-evaluate the patient with the results and go from there. cc: Mau Noel MD
[2018-07-23] MEDS: ATIVAN IV PRN (18:02)
[2018-07-23] MEDS: PROTONIX IV SCH (18:03)
[2018-07-24] MEDS: HUMALOG SUBQ SCH ×4 (06:25→21:10)
[2018-07-24 08:18] LABS: HEMATOCRIT 28.1 % (42.0-52.0); HEMOGLOBIN 8.7 g/dL (14.0-18.0); MCV 93.7 FL (81-99); MPV 9.5 FL (7.4-10.4); RDW 14.7 % (11.5-14.5); WBC 5.6 X1000 (4.8-10.8)
[2018-07-24] MEDS: COZAAR PO SCH (09:17)
[2018-07-24] MEDS: EFFEXOR XR PO SCH (09:18)
[2018-07-24] MEDS: LIPITOR PO SCH (09:18)
[2018-07-24] MEDS: MORPHINE IV PRN ×4 (09:49→22:16)
[2018-07-24] MEDS ORDERED: XYLOCAINE-MPF 2% ONE (11:47)
[2018-07-24] MEDS ORDERED: FENTANYL ONE (11:47)
[2018-07-24] MEDS ORDERED: DIPRIVAN 1% ONE ×2 (11:47→12:59)
--- NOTE | 2018-07-24 15:05 | OPERATIVE NOTE ---
PROCEDURE DATE: 07/24/2018 PROCEDURE: Colonoscopy and ablation of colon polyps. MEDICATIONS USED: MAC as per anesthesia. SCOPE USED: Pentax colonoscope. HISTORY: This is a 67-year-old gentleman admitted to the hospital with symptomatic anemia. He was admitted with hemoglobin of 8.7. It dropped to 8.6. It dropped down to 7.4. He had an EGD done earlier which did show that he had gastric ulcer which was biopsied. Pathology is still pending, but he continued to drop his hemoglobin and hematocrit. Colonoscopy was done to rule out lower GI pathology resulting in anemia. DESCRIPTION OF PROCEDURE: Informed Consent was obtained from the patient. The procedure, risks, benefits, and alternatives were explained in layman's terms. He understood. All of his pertinent questions were answered. The patient was brought to the endoscopy unit and was premedicated as per Anesthesia. After adequate sedation, while he was lying in left lateral position, digital rectal exam was performed, which was normal. The scope was then gently introduced into the rectum and advanced under direct vision through the parts of colon, all the way up to the cecum. The cecum was identified by ileocecal valve and appendiceal orifice. The scope was then passed through the normal ileocecal valve into terminal ileum. About 8-10 cm of terminal ileum was examined, which was normal. The scope was then withdrawn back in the cecum, back through the parts of colon, all the way to the rectum, paying attention to details. Preparation was fair. There were some areas in the descending colon and sigmoid colon which could not be completely examined adequately because of the retained solid pieces of stool. Otherwise, most of the colon was examined which revealed a single polyp in the rectum which was about 5 to 6 mm in size and smooth surface. It was ablated using monopolar wire without any complication. Otherwise, no polyps, tumors or cancers were seen. The scope was then removed. Patient tolerated the procedure well. No complications were noted. Patient was then transferred to the recovery area in a stable condition. IMPRESSION: Colon polyp. Otherwise normal colon although the preparation was not optimum. RECOMMENDATIONS: At this point, I would resume all of his medications and continue him on proton pump inhibitor for his gastric ulcer. I would start him back on Plavix because of his coronary artery disease. Advised to follow up with me in a few weeks, and will follow hemoglobin and hematocrit. Depending on his progress, further plans are made if he needs to have small-bowel evaluation or not. I have explained the findings and plan to the patient, and the patient's family members. They understood. All of the pertinent questions were answered. cc: Lrary Sparrow MD
[2018-07-24] MEDS: ATIVAN IV PRN (20:35)
[2018-07-25] MEDS: MORPHINE IV PRN ×3 (03:39→12:14)
[2018-07-25] MEDS: HUMALOG SUBQ SCH ×2 (06:08→12:13)
[2018-07-25] MEDS ORDERED: PRILOSEC PO SCH (07:00)
[2018-07-25 07:23] LABS: BASO# 0.01 X1000 (0.0-0.2); BASO% 0.2 % (0.0-0.8); EOS# 0.26 X1000 (0.0-0.7); HEMATOCRIT 28.4 % (42.0-52.0); HEMOGLOBIN 8.8 g/dL (14.0-18.0); MCH 29.2 PG (27-31); MCV 94.4 FL (81-99); MONO# 0.81 X1000 (0.11-0.59); MONO% 12.6 % (1.7-9.3); MPV 9.3 FL (7.4-10.4); NEUT# 3.55 X1000 (1.4-6.5); NEUT% 55.2 % (42.2-75.2); PLT 234 X1000 (130-400); RBC 3.01 XMIL (4.7-6.1); RDW 14.9 % (11.5-14.5); WBC 6.43 X1000 (4.8-10.8)
[2018-07-25 08:25] VITALS: BP 157/69
[2018-07-25] MEDS ORDERED: PLAVIX PO SCH (09:00)
[2018-07-25] MEDS: LIPITOR PO SCH (09:59)
[2018-07-25] MEDS: EFFEXOR XR PO SCH (09:59)
[2018-07-25] MEDS: COZAAR PO SCH (09:59)
--- NOTE | 2018-07-25 13:56 | PROGRESS NOTE ---
DATE: 07/25/2018 SUBJECTIVE: Patient is awake and alert. I believe he has discharge orders. He has had EGD and colonoscopy since this admission for anemia. EGD showed a gastric ulcer and esophagitis. He is currently on proton pump inhibitor. A colonoscopy was done because he had further drop in his hemoglobin and hematocrit. He had to be prepped for 2 days. Findings showed a colon polyp. Otherwise poor preparation. EGD biopsy is still pending. OBJECTIVE: Vital Signs: Temperature 98 degrees, pulse 69, respirations 18, and blood pressure 157/69. General: Patient is awake, alert and in no acute distress. LABORATORY: Hematology WBC 6.43, hemoglobin 8.8, hematocrit 28.4, MCV 94.4, and platelets 234,000. Chemistry: Sodium 142, potassium 3.7, chloride 107, CO2 26, BUN 15, creatinine 0.9, glucose 119, total bilirubin 0.23. AST 15, ALT 17 and alkaline phosphatase 52. ASSESSMENT AND PLAN: Anemia with EGD and colonoscopy showing no active bleeding. Continue PPI. Recommend he follow up with us as an outpatient. Gastric ulcer biopsy is pending. Follow on biopsy. If H-pylori is positive, he would need treatment. Again, I have recommended he follow up with us as an outpatient. I have discussed this case with Dr. Sparrow. Dictated by BALNCA Bonilla for Larry Sparrow MD cc: BLANCA Vallejo MD
--- NOTE | 2018-07-26 17:21 | DISCHARGE SUMMARY ---
ADMISSION DATE: 07/20/2018 DISCHARGE DATE: 07/25/2018 LENGTH OF STAY: Five days. CONSULTATIONS: During this admission, GI was consulted. The patient was seen by Dr. Sparrow. INVASIVE PROCEDURES: During this admission, both EGD and colonoscopy were done. Please refer to the details of the findings in the chart. DIAGNOSTIC DATA: Imaging studies of significance, a chest x-ray was done initially which shows no acute findings. DISPOSITION: Home. FOLLOWUP: 1. Dr. Bueno. 2. Dr. Sparrow. ADMISSION DIAGNOSES: 1. Suspected gastrointestinal bleed. 2. Coronary artery disease. 3. Diabetes mellitus. 4. Hypercholesterolemia. 5. Hypertension. DISCHARGE DIAGNOSES: 1. Symptomatic anemia on presentation. 2. Anemia secondary to gastrointestinal bleed. 3. Gastric ulcer with clean base on esophagogastroduodenoscopy. Biopsies were taken; report shows active gastritis with hyperplasia and edema. There was no mention of malignancy. 4. Morbid obesity, with body mass index of 41.9. Weight management is advised. 5. Diabetes mellitus, controlled. 6. Hypertension, stable. 7. Dyslipidemia. 8. History of coronary artery disease. 9. Colon polyps, status post colonoscopic polypectomy. DISCHARGE MEDICATIONS: 1. Furosemide 40 mg daily. 2. Metformin 2000 daily. 3. Clopidogrel 75 mg daily. 4. Effexor 150 p.o. daily. 5. Atorvastatin 40 mg daily. 6. Losartan 50 mg p.o. daily. 7. Pioglitazone 45 mg p.o. daily. 8. Glimepiride 4 mg p.o. daily. 9. Pantoprazole 40 mg p.o. daily. PRESENTING COMPLAINT: Shortness of breath and weakness. HISTORY OF PRESENTING COMPLAINT: Mr. Whipple is a 67-year-old gentleman who presented to the emergency department because of shortness of breath and generalized weakness. He also did complain of copious black tarry stool a couple of days before coming into the emergency department. Upon presentation the patient was found to have heme-positive stool. Hemoglobin was initially 8.7, that dropped to 7.6. He was subsequently admitted for symptomatic anemia and GI bleed for further evaluation. HOSPITAL COURSE: Mr. Whipple was admitted to the medical floor. He was initially adequately hydrated. Because of drop in the hemoglobin and hematocrit he was transfused initially, with 1 PRBC on 07/20. EGD was done which was not very revealing except for gastric ulcer with clean base. The patient was deemed stable for discharge; however, the hemoglobin and hematocrit dropped again and he had to be retransfused, so a colonoscopy was subsequently needed. This was done by Dr. Sparrow. He did find polyps which were resected, but it did not appear there was any evidence of ongoing bleed. Mr. Whipple' home medications were restarted. His hemoglobin and hematocrit was trended for 3 days consecutively, which remained stable. He is therefore clinically okay for discharge. He will follow up with Dr. Sparrow. This morning, he refers to feel a lot better. He has not had any more tarry black stool. He feels stronger. He has been up and going to the bathroom by himself, and he is tolerating his diet. PHYSICAL EXAMINATION: His physical exam is unremarkable. His vitals today, blood pressure is 157/69, pulse is 69, respirations 18, temperature is 98 degrees. The patient was saturating 99% on room air. DISCHARGE INSTRUCTIONS: He is being discharged in stable condition home. He will follow up with Dr. Bueno and Dr. Sparrow. All the discharge instructions have been discussed with him, and he voiced understanding. There was no family member at the bedside at the time of the encounter. Time spent for discharge was 36 minutes. cc: MD Mel Clay MD Khurshid Yousuf, MD
== END 2018-07-25 13:58 | disposition home or self-care (01) | DRG 378 ==
LOC: SUPCPDRO → ED 20:24 → SUATTDRO 07-20 03:12 → 3N 07-20 03:12
PROVIDERS: ATTEND Internal Medicine
CPT/HCPCS: 36430; 71010; 71045; 80048; 80053; 81001; 82270; 82607; 82728; 82746; 82948; 83036; 83540; 83550; 83880; 84466; 84484; 85014; 85018; 85025; 85027; 85045; 85610; 85730; 86850; 86900; 86901; 86920; 88305; 88312; 93005; 94760; 94761; 96374; 99285; A9270; C9113; J1815; J1940; J2060; J2270; J2405; J3010; J7030; J7040; P9016; S0164; XXXXX